=== PATIENT | male | born 1990 | race Hispanic/Latino ===

== ENCOUNTER 2018-07-20 15:52 | Emergency (ER) | payer OTHER ==
[2018-07-20 16:10] VITALS: TEMP 98; O2SAT 99
--- NOTE | 2018-07-20 17:28 | RAD ---
Date of service: 07/20/2018 PROCEDURE: Cervical Spine Radiographs. HISTORY: Pain. COMPARISON: None. FINDINGS: BONES: Status post ACDF at C6-7. There is normal alignment of the cervical vertebral bodies. There is straightening of the cervical spine with loss of normal cervical lordosis. There is no acute fracture or traumatic anterior listhesis. DISC SPACES: Normal. SOFT TISSUES: Normal. No prevertebral soft tissue swelling. OTHER FINDINGS: None. IMPRESSION: Status post ACDF at C6-7, no hardware complications. No acute findings.
[2018-07-20 17:47] VITALS: BP 119/71; PULSE 85; RESP 15
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
== END 2018-07-20 17:46 | disposition home or self-care (01) ==
LOC: H.ER 15:52
DX: M54.2 Cervicalgia (principal)
CPT/HCPCS: 72040; 96372; 99283; J1885